=== PATIENT | female | born 1955 | race Caucasian/White ===

== ENCOUNTER → 2019-05-28 | Outpatient (CLI) | payer OTHER ==
[~2019-05-28] MED LIST: ADULT LOW DOSE81 MG PO; CALCIUM 600 +1 EAC1 PO; CELEXA 20 MG TA20 M1 PO; DIOVAN HCT 80-1 EACH PO; FISH OIL 1,0001 EAC5 PO; FOSAMAX 70 MG T70 M1 PO; GLUCOSAMINE &1 EACH PO; MULTIVITAMINS PO; TUMS CHEWA500 MG/11 PO; VITAMIN D1000 UNI1 PO; VITAMINC500 PO; XANAX 0.5 MG0.5 MG PO; ZOCOR 10 MG TAB10 MG PO
== END ==
LOC: SJCVCIMAG 13:44
DX: I73.00 Raynaud's syndrome without gangrene (principal); I73.9 Peripheral vascular disease, unspecified